=== PATIENT | male | born 1990 | race Caucasian/White ===

== ENCOUNTER 2023-04-21 12:14 | Emergency (ER) | payer MEDICAID ==
[~2023-04-21] VITALS: Ht 177.8 cm; Wt 99.0 kg
[2023-04-21] MEDS ORDERED: LIDOcaine Viscous 15ml cup MM STA (13:24)
[2023-04-21 14:30] VITALS: BP 128/75; PULSE 80; RESP 16; TEMP 98; O2SAT 96
== END 2023-04-21 14:32 | disposition home or self-care (01) ==
LOC: ER 12:14
DX: J68.9 Unspecified respiratory condition due to chemicals, gases, fumes and vapors (principal)
CPT/HCPCS: 71045; 99283

== ENCOUNTER 2023-06-24 12:55 | Emergency (ER) | payer MEDICAID ==
[~2023-06-24] VITALS: Ht 180.3 cm; Wt 96.4 kg
[2023-06-24 13:46] VITALS: BP 149/65; PULSE 81; RESP 16; TEMP 98.4; O2SAT 97
[2023-06-24 14:30] LABS: BASOPHILS % (AUTO) 0.6 % (0-1); EOSINOPHILS # (AUTO) 0.2 X10'3 (0-0.9); EOSINOPHILS % (AUTO) 2.5 % (0-6); HEMATOCRIT 44.8 % (42.0-52.0); HEMOGLOBIN 15.2 g/dl (14.0-17.9); LYMPHOCYTES # (AUTO) 2.3 X10'3 (1.1-4.8); LYMPHOCYTES % (AUTO) 28.4 % (21-51); MEAN CORPUSCULAR HEMOGLOBIN 31.5 PG (27.0-31.0); MEAN CORPUSCULAR HGB CONC 33.8 g/dL (33.0-36.5); MEAN CORPUSCULAR VOLUME 92.9 FL (78-98); MEAN PLATELET VOLUME 8.7 FL (7.4-10.4); MONOCYTES # (AUTO) 0.6 X10'3 (0-0.9); MONOCYTES % (AUTO) 7.1 % (2-12); NEUTROPHILS % (AUTO) 61.4 % (42-75); PLATELET COUNT 247 X10'3 (140-440); RED BLOOD COUNT 4.82 X10'6 (4.70-6.10); RED CELL DISTRIBUTION WIDTH 15.3 % (11.5-14.5); WHITE BLOOD COUNT 8.2 X10'3 (4.5-11.0)
[2023-06-24 14:52] LABS: ALANINE AMINOTRANSFERASE 184 U/L (12-78); ALBUMIN 4.5 G/DL (3.4-5.0); ALBUMIN/GLOBULIN RATIO 1.2 (1.1-1.5); ALKALINE PHOSPHATASE 144 IU/L (46-116); ANION GAP 9 (8-16); ASPARTATE AMINO TRANSFERASE 59 U/L (10-37); BILIRUBIN,TOTAL 0.5 MG/DL (0.1-1.0); BLOOD UREA NITROGEN 17 MG/DL (7-18); BUN/CREATININE RATIO 17.3 (10.0-20.0); CALCIUM 9.8 MG/DL (8.5-10.1); CHLORIDE 106 MMOL/L (99-107); CREATININE 0.98 MG/DL (0.60-1.10); GLUCOSE 100 MG/DL (70-104); SODIUM 142 MMOL/L (135-145); TOTAL PROTEIN 8.4 G/DL (6.4-8.2); eCRCL 114 ML/MIN; eGFR 88 ML/MIN
[2023-06-24 15:01] LABS: PRO BRAIN NATRIURETIC PEPTIDE 39 PG/ML (0-125)
== END 2023-06-24 16:20 | disposition left against medical advice (07) ==
LOC: ER 12:55
DX: F41.9 Anxiety disorder, unspecified (principal); Z53.21 Procedure and treatment not carried out due to patient leaving prior to being seen by health care provider
CPT/HCPCS: 36415; 80053; 82948; 83880; 84484; 85025; 99281

== ENCOUNTER 2023-07-24 19:25 | Emergency (ER) | payer MEDICAID ==
[~2023-07-24] VITALS: Ht 177.8 cm; Wt 99.6 kg
[2023-07-24 19:33] VITALS: BP 130/70; PULSE 74; RESP 18; TEMP 98.6; O2SAT 97
== END 2023-07-24 22:59 | disposition left against medical advice (07) ==
LOC: ER 19:25
DX: F41.9 Anxiety disorder, unspecified (principal); J45.909 Unspecified asthma, uncomplicated
CPT/HCPCS: 71046; 99283

== ENCOUNTER 2023-08-18 11:37 | Inpatient (IN) | payer MEDICAID ==
[~2023-08-18] VITALS: Ht 180.3 cm; Wt 221.4 kg
[2023-08-18 13:08] LABS: BASOPHILS % (AUTO) 0.2 % (0-1); EOSINOPHILS % (AUTO) 0.4 % (0-6); HEMATOCRIT 42.9 % (42.0-52.0); HEMOGLOBIN 14.2 g/dl (14.0-17.9); LYMPHOCYTES # (AUTO) 1.5 X10'3 (1.1-4.8); LYMPHOCYTES % (AUTO) 15.9 % (21-51); MEAN CORPUSCULAR HEMOGLOBIN 31.1 PG (27.0-31.0); MEAN CORPUSCULAR HGB CONC 33.1 g/dL (33.0-36.5); MEAN CORPUSCULAR VOLUME 94.1 FL (78-98); MEAN PLATELET VOLUME 8.5 FL (7.4-10.4); MONOCYTES # (AUTO) 0.1 X10'3 (0-0.9); MONOCYTES % (AUTO) 1.4 % (2-12); NEUTROPHILS # (AUTO) 7.7 X10'3 (1.8-7.7); NEUTROPHILS % (AUTO) 82.1 % (42-75); PLATELET COUNT 234 X10'3 (140-440); RED BLOOD COUNT 4.55 X10'6 (4.70-6.10); RED CELL DISTRIBUTION WIDTH 16.7 % (11.5-14.5); WHITE BLOOD COUNT 9.4 X10'3 (4.5-11.0)
[2023-08-18 13:20] LABS: APTT 25 SECONDS (22-32); PROTHROMBIN TIME 10.6 SECONDS (9.0-12.0)
[2023-08-18 13:21] LABS: ALBUMIN 3.6 G/DL (3.4-5.0); ANION GAP 15 (8-16); BLOOD UREA NITROGEN 14 MG/DL (7-18); BUN/CREATININE RATIO 16.3 (10.0-20.0); CALCIUM 9.1 MG/DL (8.5-10.1); CHLORIDE 109 MMOL/L (99-107); CREATININE 0.86 MG/DL (0.60-1.10); GLUCOSE 127 MG/DL (70-104); POTASSIUM 4.1 MMOL/L (3.5-5.1); SODIUM 147 MMOL/L (135-145); TOTAL CARBON DIOXIDE 22.7 MMOL/L (24-32); eCRCL 130 ML/MIN; eGFR > 90 ML/MIN
[2023-08-18] MEDS: LORazepam 2 mg/ml vial IV ONE (16:46)
[2023-08-18] MEDS: ringers solution, lacted 1,000 ML IV ONE (16:50)
[2023-08-18] MEDS ORDERED: bupivacaine 0.25%/epinephrine 1:200,000 inj (contains preserv. MDV) IJ ONE (16:55)
[2023-08-18] MEDS ORDERED: IMMUNE GLOBUL G/GLY/IGA AVG 46 400 ML IV SCH (17:30)
[2023-08-18] MEDS: IMMUNE GLOBUL G/GLY/IGA AVG 46 400 ML IV SCH (17:30)
[2023-08-18] MEDS: BUPIVAcaine 0.25% w/Epi /PF 30ml vial IJ ONE (17:45)
[2023-08-18] MEDS ORDERED: magnesium hydroxide 30ml (MOM) UD suspension PO PRN (17:55)
[2023-08-18] MEDS ORDERED: HYDROcodone/acetaminophen 5mg/325mg tablet PO PRN (17:55)
[2023-08-18] MEDS ORDERED: mag hydrox/Alum hydrox/simeth 30ml oral suspension PO PRN (17:55)
[2023-08-18] MEDS ORDERED: ondansetron 4mg rapidly disintigrating tab PO PRN (17:55)
[2023-08-18] MEDS ORDERED: acetaminophen 325mg tablet PO PRN ×2 (17:55)
[2023-08-18] MEDS ORDERED: bisacodyl 10mg suppository rectal RC PRN (17:55)
[2023-08-18] MEDS ORDERED: diphenhydrAMINE 50 mg/ml inj IV PRN (17:55)
[2023-08-18] MEDS ORDERED: acetaminophen 650mg rectal suppository RC PRN (17:55)
[2023-08-18] MEDS ORDERED: ondansetron/PF 4mg/2ml inj IV PRN (17:55)
[2023-08-18] MEDS: dextrose 5%-water 1,000 ML IV SCH (18:00)
[2023-08-18 18:11] LABS: HIV ANTIBODY 1&2 RAPID NON-REACTIVE (Neg)
[2023-08-18 19:03] LABS: APTT 24 SECONDS (22-32); PROTHROMBIN TIME 10.6 SECONDS (9.0-12.0)
[2023-08-18 19:10] LABS: HEMOGLOBIN A1C 5.7 % (4.5-6.2)
[2023-08-18 19:15] LABS: CREATINE KINASE 45 U/L (39-308); ETHANOL < 10 MG/DL (<10); LIPASE 64 U/L (16-77); MAGNESIUM 2.5 MG/DL (1.5-2.4); PHOSPHORUS 3.7 MG/DL (2.3-4.5); PRO BRAIN NATRIURETIC PEPTIDE 153 PG/ML (0-125); THYROID STIMULATING HORMONE 0.68 ulU/ml (0.34-4.50)
[2023-08-18 19:54] LABS: GLUCOSE,CSF 65 MG/DL (40-75); TOTAL PROTEIN,CSF 91 MG/DL (15-45)
[2023-08-18] MEDS: docusate sod 100mg capsule PO SCH (20:00)
[2023-08-18 20:29] LABS: APPEARANCE,CSF CLEAR; CSF RBC 0 /CU MM (0); CSF SUPERNATANT COLOR COLORLESS; CSF VOLUME 12 ML; TUBE# COUNTED 1
[2023-08-18 20:31] LABS: CSF WBC CT 2 /CU MM (0-5)
[2023-08-18 20:44] LABS: APPEARANCE,CSF CLEAR; CSF SUPERNATANT COLOR COLORLESS; CSF VOLUME 12 ML; CSF WBC CT 1 /CU MM (0-5); TUBE# COUNTED 4
[2023-08-18 20:47] LABS: CSF RBC 0 /CU MM (0)
[2023-08-18] MEDS ORDERED: temazepam 15mg capsule PO PRN (21:00)
[2023-08-18 22:43] LABS: C-REACTIVE PROTEIN 0.49 MG/DL (0.0-0.5)
[2023-08-19 02:31] LABS: BASOPHILS % (AUTO) 0.3 % (0-1); EOSINOPHILS # (AUTO) 0.2 X10'3 (0-0.9); EOSINOPHILS % (AUTO) 1.6 % (0-6); HEMOGLOBIN 12.7 g/dl (14.0-17.9); LYMPHOCYTES # (AUTO) 1.7 X10'3 (1.1-4.8); LYMPHOCYTES % (AUTO) 18.2 % (21-51); MEAN CORPUSCULAR HEMOGLOBIN 32.3 PG (27.0-31.0); MEAN CORPUSCULAR HGB CONC 34.4 g/dL (33.0-36.5); MEAN CORPUSCULAR VOLUME 93.8 FL (78-98); MEAN PLATELET VOLUME 8.5 FL (7.4-10.4); MONOCYTES # (AUTO) 0.4 X10'3 (0-0.9); MONOCYTES % (AUTO) 3.8 % (2-12); NEUTROPHILS # (AUTO) 7.2 X10'3 (1.8-7.7); NEUTROPHILS % (AUTO) 76.1 % (42-75); PLATELET COUNT 193 X10'3 (140-440); RED BLOOD COUNT 3.94 X10'6 (4.70-6.10); RED CELL DISTRIBUTION WIDTH 16.6 % (11.5-14.5); WHITE BLOOD COUNT 9.4 X10'3 (4.5-11.0)
[2023-08-19 02:44] LABS: ALANINE AMINOTRANSFERASE 56 U/L (12-78); ALBUMIN/GLOBULIN RATIO 0.8 (1.1-1.5); ALKALINE PHOSPHATASE 93 IU/L (46-116); ANION GAP 11 (8-16); ASPARTATE AMINO TRANSFERASE 11 U/L (10-37); BILIRUBIN,TOTAL 0.2 MG/DL (0.1-1.0); BLOOD UREA NITROGEN 20 MG/DL (7-18); BUN/CREATININE RATIO 20.4 (10.0-20.0); CALCIUM 8.4 MG/DL (8.5-10.1); CHLORIDE 111 MMOL/L (99-107); CHOL/HDL RATIO 5.2 (0.00-4.99); CHOLESTEROL 165 MG/DL (0-200); CREATININE 0.98 MG/DL (0.60-1.10); GLUCOSE 109 MG/DL (70-104); HDL CHOLESTEROL 32 MG/DL (35-60); LDL CHOLESTEROL 113 MG/DL (50-100); POTASSIUM 3.3 MMOL/L (3.5-5.1); SODIUM 146 MMOL/L (135-145); TOTAL CARBON DIOXIDE 23.9 MMOL/L (24-32); TOTAL PROTEIN 6.9 G/DL (6.4-8.2); TRIGLYCERIDES 172 MG/DL (20-135); eCRCL 114 ML/MIN; eGFR 88 ML/MIN
[2023-08-19] MEDS: pantoprazole 40mg Tablet.DR PO SCH (07:36)
[2023-08-19] MEDS: HYDROcodone/acetaminophen 10/325mg tab PO PRN (08:57)
[2023-08-19] MEDS: diphenhydrAMINE 25mg capsule PO PRN (09:19)
[2023-08-19 11:16] VITALS: BP 118/75; PULSE 65; RESP 18; TEMP 98.1; O2SAT 98
[2023-08-19 15:00] VITALS: BP 115/73; PULSE 54; RESP 18; TEMP 97.2; O2SAT 95
[2023-08-19 18:00] VITALS: BP 127/87; PULSE 68; RESP 18; TEMP 97.5; O2SAT 96
[2023-08-19] MEDS ORDERED: potassium Cl 40MEQ/1/2NS 520ml 520 ML IV PRN (18:30)
[2023-08-19] MEDS ORDERED: potassium Cl 20 mEq SR tablet PO PRN (18:30)
[2023-08-19] MEDS ORDERED: magnesium Cl slow-release 64mg tablet PO PRN (18:30)
[2023-08-19] MEDS ORDERED: magnesium 4gm in 100ml NS 100 ML IV PRN (18:30)
[2023-08-19] MEDS ORDERED: magnesium 2GM in 50ml NS 50 ML IV PRN (18:30)
[2023-08-19] MEDS: potassium Cl 20 mEq SR tablet PO PRN (19:09)
[2023-08-19 20:00] VITALS: RESP 16; O2SAT 95
[2023-08-19] MEDS: K and/or MAG REPLACEMENT MC SCH (20:00)
[2023-08-19 22:00] VITALS: BP 118/72; PULSE 56; RESP 16; TEMP 97.3; O2SAT 94
[2023-08-20] VITALS (7 sets, daily range): BP systolic 109–134; BP diastolic 59–81; PULSE 42–62; RESP 14–20; TEMP 97.1–98.1; O2SAT 94–98
[2023-08-20] MEDS: IMMUNE GLOBUL G/GLY/IGA AVG 46 400 ML IV SCH (01:00)
[2023-08-20] MEDS: morphine 2 MG/ML inj. syringe IV PRN (05:21)
[2023-08-20 07:05] LABS: BASOPHILS # (AUTO) 0.1 X10'3 (0-0.2); BASOPHILS % (AUTO) 0.9 % (0-1); EOSINOPHILS # (AUTO) 0.3 X10'3 (0-0.9); EOSINOPHILS % (AUTO) 4.1 % (0-6); HEMATOCRIT 38.1 % (42.0-52.0); HEMOGLOBIN 12.9 g/dl (14.0-17.9); LYMPHOCYTES # (AUTO) 2.4 X10'3 (1.1-4.8); LYMPHOCYTES % (AUTO) 39.3 % (21-51); MEAN CORPUSCULAR HEMOGLOBIN 31.8 PG (27.0-31.0); MEAN CORPUSCULAR HGB CONC 33.8 g/dL (33.0-36.5); MEAN CORPUSCULAR VOLUME 94.1 FL (78-98); MEAN PLATELET VOLUME 8.5 FL (7.4-10.4); MONOCYTES # (AUTO) 0.5 X10'3 (0-0.9); MONOCYTES % (AUTO) 7.8 % (2-12); NEUTROPHILS # (AUTO) 2.9 X10'3 (1.8-7.7); NEUTROPHILS % (AUTO) 47.9 % (42-75); PLATELET COUNT 188 X10'3 (140-440); RED BLOOD COUNT 4.04 X10'6 (4.70-6.10); RED CELL DISTRIBUTION WIDTH 16.9 % (11.5-14.5); WHITE BLOOD COUNT 6.1 X10'3 (4.5-11.0)
[2023-08-20 07:52] LABS: ALANINE AMINOTRANSFERASE 51 U/L (12-78); ALBUMIN 2.8 G/DL (3.4-5.0); ALBUMIN/GLOBULIN RATIO 0.6 (1.1-1.5); ALKALINE PHOSPHATASE 91 IU/L (46-116); ANION GAP 10 (8-16); ASPARTATE AMINO TRANSFERASE 12 U/L (10-37); BILIRUBIN,TOTAL 0.1 MG/DL (0.1-1.0); BLOOD UREA NITROGEN 15 MG/DL (7-18); BUN/CREATININE RATIO 17.6 (10.0-20.0); CALCIUM 8.3 MG/DL (8.5-10.1); CHLORIDE 111 MMOL/L (99-107); CREATININE 0.85 MG/DL (0.60-1.10); GLUCOSE 114 MG/DL (70-104); MAGNESIUM 2.3 MG/DL (1.5-2.4); POTASSIUM 3.8 MMOL/L (3.5-5.1); SODIUM 144 MMOL/L (135-145); TOTAL CARBON DIOXIDE 23.1 MMOL/L (24-32); TOTAL PROTEIN 7.3 G/DL (6.4-8.2); eCRCL 132 ML/MIN; eGFR > 90 ML/MIN
[2023-08-20] MEDS ORDERED: LORazepam 0.5 MG tablet PO PRN (12:25)
[2023-08-20] MEDS: LORazepam 1 MG tablet PO PRN (13:15)
[2023-08-20] MEDS: LORazepam 2 mg/ml vial IV PRN (13:40)
[2023-08-20] MEDS ORDERED: LORazepam 2 mg/ml vial IV ONE (14:10)
[2023-08-20] MEDS: LORazepam 2 mg/ml vial IV ONE (14:30)
[2023-08-20] MEDS ORDERED: GADOTERATE MEGLUMINE 7.5 MMOL/15 ML VIAL IV ONE (15:35)
[2023-08-20] MEDS: LORazepam 1 MG tablet PO SCH (19:19)
[2023-08-20] MEDS: heparin, porcine 5000 units/ml vial SQ SCH (20:44)
[2023-08-20] MEDS: vancomycin 1,750 MG in NS 350ml IV soln IV ONE (20:44)
[2023-08-21] MEDS: vancomycin/NS 1 GM ADD-VANTAGE 250 ML IV SCH (03:25)
[2023-08-21 06:28] LABS: BASOPHILS % (AUTO) 0.5 % (0-1); EOSINOPHILS # (AUTO) 0.3 X10'3 (0-0.9); EOSINOPHILS % (AUTO) 3.8 % (0-6); HEMATOCRIT 40.8 % (42.0-52.0); HEMOGLOBIN 13.7 g/dl (14.0-17.9); LYMPHOCYTES # (AUTO) 2.1 X10'3 (1.1-4.8); LYMPHOCYTES % (AUTO) 27.3 % (21-51); MEAN CORPUSCULAR HGB CONC 33.6 g/dL (33.0-36.5); MEAN CORPUSCULAR VOLUME 95.3 FL (78-98); MEAN PLATELET VOLUME 8.8 FL (7.4-10.4); MONOCYTES # (AUTO) 0.6 X10'3 (0-0.9); MONOCYTES % (AUTO) 7.4 % (2-12); NEUTROPHILS # (AUTO) 4.6 X10'3 (1.8-7.7); PLATELET COUNT 197 X10'3 (140-440); RED BLOOD COUNT 4.28 X10'6 (4.70-6.10); RED CELL DISTRIBUTION WIDTH 17.1 % (11.5-14.5); WHITE BLOOD COUNT 7.5 X10'3 (4.5-11.0)
[2023-08-21 07:00] VITALS: BP 131/79; PULSE 60; RESP 16; TEMP 98; O2SAT 96
[2023-08-21 07:04] LABS: ALANINE AMINOTRANSFERASE 55 U/L (12-78); ALBUMIN/GLOBULIN RATIO 0.6 (1.1-1.5); ALKALINE PHOSPHATASE 95 IU/L (46-116); ANION GAP 14 (8-16); ASPARTATE AMINO TRANSFERASE 17 U/L (10-37); BILIRUBIN,TOTAL 0.4 MG/DL (0.1-1.0); BLOOD UREA NITROGEN 14 MG/DL (7-18); BUN/CREATININE RATIO 15.6 (10.0-20.0); CALCIUM 8.9 MG/DL (8.5-10.1); CHLORIDE 109 MMOL/L (99-107); GLUCOSE 110 MG/DL (70-104); MAGNESIUM 2.5 MG/DL (1.5-2.4); POTASSIUM 4.2 MMOL/L (3.5-5.1); SODIUM 143 MMOL/L (135-145); TOTAL CARBON DIOXIDE 20.4 MMOL/L (24-32); TOTAL PROTEIN 8.2 G/DL (6.4-8.2); eCRCL 124 ML/MIN; eGFR > 90 ML/MIN
[2023-08-21 09:18] LABS: TOTAL CELLS COUNTED 100
[2023-08-21 09:19] LABS: ANISOCYTOSIS 1+; PLATELET ESTIMATE NORMAL
[2023-08-21 11:00] VITALS: BP 134/78; PULSE 76; RESP 18; TEMP 98; O2SAT 95
[2023-08-21] MEDS: LORazepam 1 MG tablet PO SCH (13:00)
[2023-08-21 15:00] VITALS: BP 143/78; PULSE 70; RESP 18; TEMP 97.8; O2SAT 97
[2023-08-21] MEDS: LORazepam 2 mg/ml vial IV ONE (16:28)
[2023-08-21] MEDS ORDERED: divalproex sod 125mg tablet.DR PO SCH (17:30)
[2023-08-21 18:00] VITALS: BP 126/83; PULSE 64; RESP 16; TEMP 97.3; O2SAT 98
[2023-08-21] MEDS ORDERED: GADOTERATE MEGLUMINE 7.5 MMOL/15 ML VIAL IV ONE (18:49)
[2023-08-21] MEDS ORDERED: VANCOMYCIN LEVEL IJ ONE (19:30)
[2023-08-21 20:00] VITALS: RESP 18; O2SAT 98
[2023-08-21 22:00] VITALS: BP 133/76; PULSE 71; RESP 18; TEMP 97.7; O2SAT 95
[2023-08-22] VITALS (7 sets, daily range): BP systolic 107–142; BP diastolic 68–81; PULSE 64–79; RESP 16–24; TEMP 97.2–98.8; O2SAT 95–100
[2023-08-22 07:22] LABS: BASOPHILS # (AUTO) 0.1 X10'3 (0-0.2); BASOPHILS % (AUTO) 0.5 % (0-1); EOSINOPHILS # (AUTO) 0.3 X10'3 (0-0.9); EOSINOPHILS % (AUTO) 2.9 % (0-6); HEMATOCRIT 39.1 % (42.0-52.0); HEMOGLOBIN 13.6 g/dl (14.0-17.9); LYMPHOCYTES # (AUTO) 2.3 X10'3 (1.1-4.8); LYMPHOCYTES % (AUTO) 22.4 % (21-51); MEAN CORPUSCULAR HEMOGLOBIN 32.2 PG (27.0-31.0); MEAN CORPUSCULAR HGB CONC 34.8 g/dL (33.0-36.5); MEAN CORPUSCULAR VOLUME 92.5 FL (78-98); MEAN PLATELET VOLUME 8.5 FL (7.4-10.4); MONOCYTES # (AUTO) 0.6 X10'3 (0-0.9); MONOCYTES % (AUTO) 5.6 % (2-12); NEUTROPHILS % (AUTO) 68.6 % (42-75); PLATELET COUNT 188 X10'3 (140-440); RED BLOOD COUNT 4.22 X10'6 (4.70-6.10); RED CELL DISTRIBUTION WIDTH 16.8 % (11.5-14.5); WHITE BLOOD COUNT 10.2 X10'3 (4.5-11.0)
[2023-08-22 07:41] LABS: ALANINE AMINOTRANSFERASE 54 U/L (12-78); ALBUMIN 2.9 G/DL (3.4-5.0); ALBUMIN/GLOBULIN RATIO 0.5 (1.1-1.5); ALKALINE PHOSPHATASE 105 IU/L (46-116); ANION GAP 6 (8-16); ASPARTATE AMINO TRANSFERASE 25 U/L (10-37); BILIRUBIN,TOTAL 0.7 MG/DL (0.1-1.0); BLOOD UREA NITROGEN 15 MG/DL (7-18); BUN/CREATININE RATIO 16.3 (10.0-20.0); CALCIUM 8.4 MG/DL (8.5-10.1); CHLORIDE 107 MMOL/L (99-107); CREATININE 0.92 MG/DL (0.60-1.10); GLUCOSE 101 MG/DL (70-104); POTASSIUM 3.8 MMOL/L (3.5-5.1); SODIUM 139 MMOL/L (135-145); TOTAL CARBON DIOXIDE 25.8 MMOL/L (24-32); TOTAL PROTEIN 8.2 G/DL (6.4-8.2); eCRCL 122 ML/MIN; eGFR > 90 ML/MIN
[2023-08-22] MEDS: divalproex sod 125mg tablet.DR PO SCH (08:01)
[2023-08-22 10:15] LABS: ALDOLASE 6.9 U/L (3.3-10.3)
[2023-08-22] MEDS: amitriptyline 25mg tablet PO SCH (21:19)
[2023-08-23 02:00] VITALS: BP 133/79; PULSE 63; RESP 18; TEMP 97.2; O2SAT 100
[2023-08-23 06:00] VITALS: BP 113/79; PULSE 63; RESP 16; TEMP 97.8; O2SAT 95
[2023-08-23 06:44] LABS: BASOPHILS # (AUTO) 0.1 X10'3 (0-0.2); BASOPHILS % (AUTO) 0.4 % (0-1); EOSINOPHILS # (AUTO) 0.4 X10'3 (0-0.9); EOSINOPHILS % (AUTO) 2.8 % (0-6); HEMATOCRIT 39.8 % (42.0-52.0); HEMOGLOBIN 13.6 g/dl (14.0-17.9); LYMPHOCYTES # (AUTO) 2.3 X10'3 (1.1-4.8); LYMPHOCYTES % (AUTO) 16.2 % (21-51); MEAN CORPUSCULAR HEMOGLOBIN 31.7 PG (27.0-31.0); MEAN CORPUSCULAR HGB CONC 34.1 g/dL (33.0-36.5); MEAN PLATELET VOLUME 8.9 FL (7.4-10.4); MONOCYTES # (AUTO) 0.7 X10'3 (0-0.9); MONOCYTES % (AUTO) 5.2 % (2-12); NEUTROPHILS # (AUTO) 10.5 X10'3 (1.8-7.7); NEUTROPHILS % (AUTO) 75.4 % (42-75); PLATELET COUNT 207 X10'3 (140-440); RED BLOOD COUNT 4.28 X10'6 (4.70-6.10)
[2023-08-23 06:56] LABS: ALANINE AMINOTRANSFERASE 55 U/L (12-78); ALBUMIN/GLOBULIN RATIO 0.5 (1.1-1.5); ALKALINE PHOSPHATASE 101 IU/L (46-116); ANION GAP 7 (8-16); ASPARTATE AMINO TRANSFERASE 27 U/L (10-37); BILIRUBIN,TOTAL 0.7 MG/DL (0.1-1.0); BLOOD UREA NITROGEN 14 MG/DL (7-18); BUN/CREATININE RATIO 16.5 (10.0-20.0); CALCIUM 8.8 MG/DL (8.5-10.1); CHLORIDE 107 MMOL/L (99-107); CREATININE 0.85 MG/DL (0.60-1.10); GLUCOSE 104 MG/DL (70-104); MAGNESIUM 2.1 MG/DL (1.5-2.4); POTASSIUM 4.1 MMOL/L (3.5-5.1); SODIUM 140 MMOL/L (135-145); TOTAL CARBON DIOXIDE 25.7 MMOL/L (24-32); TOTAL PROTEIN 8.6 G/DL (6.4-8.2); eCRCL 132 ML/MIN; eGFR > 90 ML/MIN
[2023-08-23 08:00] VITALS: RESP 16; O2SAT 95
[2023-08-23 12:02] LABS: CSF WEST NILE VIRUS, IGM Negative (Negative)
[2023-08-23] MEDS: sertraline 25mg tablet PO SCH (12:37)
[2023-08-23 17:28] LABS: IMMUNOGLOBULIN G, QN CSF 4.3 mg/dL (0.0-10.3); VDRL, CSF Non Reactive (Non Rea:<1:1)
[2023-08-23 18:00] VITALS: BP 119/74; PULSE 60; RESP 20; TEMP 97.6; O2SAT 96
[2023-08-23 20:00] VITALS: RESP 20; O2SAT 91
[2023-08-23] MEDS: normal saline 1000ml 1,000 ML IV SCH (21:30)
[2023-08-23 22:00] VITALS: BP 123/74; PULSE 60; RESP 20; TEMP 97.8; O2SAT 96
[2023-08-24 02:00] VITALS: BP 117/57; PULSE 63; RESP 20; TEMP 97.6; O2SAT 95
[2023-08-24 06:00] VITALS: BP 123/70; PULSE 60; RESP 20; TEMP 97.6; O2SAT 96
[2023-08-24 08:00] VITALS: RESP 18; O2SAT 98
[2023-08-24 11:00] VITALS: BP 123/83; PULSE 66; RESP 16; TEMP 98.7; O2SAT 95
[2023-08-24 11:03] LABS: BASOPHILS % (AUTO) 0.2 % (0-1); EOSINOPHILS # (AUTO) 0.5 X10'3 (0-0.9); EOSINOPHILS % (AUTO) 4.9 % (0-6); HEMATOCRIT 42.5 % (42.0-52.0); HEMOGLOBIN 14.8 g/dl (14.0-17.9); LYMPHOCYTES # (AUTO) 2.1 X10'3 (1.1-4.8); LYMPHOCYTES % (AUTO) 21.1 % (21-51); MEAN CORPUSCULAR HEMOGLOBIN 32.5 PG (27.0-31.0); MEAN CORPUSCULAR HGB CONC 34.9 g/dL (33.0-36.5); MEAN CORPUSCULAR VOLUME 93.2 FL (78-98); MEAN PLATELET VOLUME 9.2 FL (7.4-10.4); MONOCYTES # (AUTO) 0.6 X10'3 (0-0.9); MONOCYTES % (AUTO) 5.6 % (2-12); NEUTROPHILS # (AUTO) 6.9 X10'3 (1.8-7.7); NEUTROPHILS % (AUTO) 68.2 % (42-75); PLATELET COUNT 221 X10'3 (140-440); RED BLOOD COUNT 4.56 X10'6 (4.70-6.10); RED CELL DISTRIBUTION WIDTH 17.2 % (11.5-14.5); WHITE BLOOD COUNT 10.1 X10'3 (4.5-11.0)
[2023-08-24 11:10] LABS: ALANINE AMINOTRANSFERASE 86 U/L (12-78); ALBUMIN/GLOBULIN RATIO 0.5 (1.1-1.5); ALKALINE PHOSPHATASE 99 IU/L (46-116); ANION GAP 11 (8-16); ASPARTATE AMINO TRANSFERASE 51 U/L (10-37); BLOOD UREA NITROGEN 13 MG/DL (7-18); BUN/CREATININE RATIO 15.1 (10.0-20.0); CALCIUM 9.4 MG/DL (8.5-10.1); CHLORIDE 105 MMOL/L (99-107); CREATININE 0.86 MG/DL (0.60-1.10); GLUCOSE 112 MG/DL (70-104); POTASSIUM 4.2 MMOL/L (3.5-5.1); SODIUM 139 MMOL/L (135-145); TOTAL CARBON DIOXIDE 22.8 MMOL/L (24-32); eCRCL 130 ML/MIN; eGFR > 90 ML/MIN
[2023-08-24] MEDS ORDERED: AMIT25TA9 PO (12:04)
[2023-08-24] MEDS ORDERED: SERT-432 PO (12:04)
[2023-08-24 16:54] LABS: IMMUNOGLOBULIN A, QUANT, CSF 0.99 mg/dL (0.00-0.71); IMMUNOGLOBULIN M, QN, CSF 0.06 mg/dL (0.01-0.08)
[2023-08-25 19:40] LABS: MYELIN BASIC PROTEIN, CSF >139.0 ng/mL (0.0-3.8)
== END 2023-08-24 16:35 | disposition home or self-care (01) | DRG 49 ==
LOC: ER 11:38 → ED HOLD 17:56 → EDBEDREQ 08-19 06:25 → PCU 3S 08-19 11:18
PROVIDERS: ADMIT Family Medicine; ATTEND Family Medicine
PROC: 00JU3ZZ Inspection of Spinal Canal, Percutaneous Approach (ICD-10-PCS; principal; 2023-08-18)
DX: G61.0 Guillain-Barre syndrome (principal); E87.0 Hyperosmolality and hypernatremia; E87.20 Acidosis, unspecified; E66.9 Obesity, unspecified; G89.29 Other chronic pain; F41.1 Generalized anxiety disorder; M54.50 Low back pain, unspecified; J45.909 Unspecified asthma, uncomplicated; Z20.822 Contact with and (suspected) exposure to COVID-19; F32.A Depression, unspecified; F10.20 Alcohol dependence, uncomplicated; Z68.30 Body mass index [BMI] 30.0-30.9, adult; Z79.899 Other long term (current) drug therapy
CPT/HCPCS: 36415; 62270; 70450; 70553; 71045; 72156; 72157; 72158; 80048; 80053; 80061; 80320; 82085; 82550; 82607; 82784; 82945; 82948; 83036; 83605; 83690; 83735; 83873; 83880; 84100; 84145; 84157; 84443; 85007; 85025; 85610; 85651; 85730; 86140; 86592; 86703; 86788; 86789; 87015; 87040; 87070; 87077; 87081; 87502; 87503; 87634; 87811; 89051; 93005; 93308; 97116; 97161; 97530; 99285; A6446; A9575; G0378; J1459; J1644; J2060; J2270; J3370; J7030; J7040; J7042; J7070; J7120; Q0163; S0020

== ENCOUNTER 2024-07-21 02:53 | Emergency (ER) | payer MEDICAID ==
[~2024-07-21] VITALS: Ht 180.3 cm; Wt 104.0 kg
[~2024-07-21 02:53] MED LIST: AMIT25TA9 PO; SERT-432 PO
[2024-07-21] MEDS: normal saline 1000ML IV soln IVB ONE (03:38)
[2024-07-21] MEDS: dexamethasone sod phosphate 10mg/ml inj IV STA (03:38)
[2024-07-21] MEDS: diphenhydrAMINE 50 mg/ml inj IV ONE (03:38)
[2024-07-21 03:42] LABS: BASOPHILS # (AUTO) 0.1 X10'3 (0-0.2); BASOPHILS % (AUTO) 1.2 % (0-1); EOSINOPHILS # (AUTO) 0.2 X10'3 (0-0.9); EOSINOPHILS % (AUTO) 2.4 % (0-6); HEMATOCRIT 41.9 % (42.0-52.0); HEMOGLOBIN 14.1 g/dl (14.0-17.9); LYMPHOCYTES # (AUTO) 3.4 X10'3 (1.1-4.8); LYMPHOCYTES % (AUTO) 41.1 % (21-51); MEAN CORPUSCULAR HEMOGLOBIN 29.9 PG (27.0-31.0); MEAN CORPUSCULAR HGB CONC 33.6 g/dL (33.0-36.5); MEAN CORPUSCULAR VOLUME 88.9 FL (78-98); MEAN PLATELET VOLUME 9.1 FL (7.4-10.4); MONOCYTES # (AUTO) 0.5 X10'3 (0-0.9); MONOCYTES % (AUTO) 5.5 % (2-12); NEUTROPHILS # (AUTO) 4.1 X10'3 (1.8-7.7); NEUTROPHILS % (AUTO) 49.8 % (42-75); PLATELET COUNT 223 X10'3 (140-440); RED BLOOD COUNT 4.71 X10'6 (4.70-6.10); RED CELL DISTRIBUTION WIDTH 13.6 % (11.5-14.5); WHITE BLOOD COUNT 8.3 X10'3 (4.5-11.0)
[2024-07-21 03:54] LABS: ALANINE AMINOTRANSFERASE 113 U/L (12-78); ALBUMIN 3.8 G/DL (3.4-5.0); ALBUMIN/GLOBULIN RATIO 1.3 (1.1-1.5); ALKALINE PHOSPHATASE 163 IU/L (46-116); ANION GAP 12 (8-16); ASPARTATE AMINO TRANSFERASE 32 U/L (10-37); BILIRUBIN,TOTAL 0.3 MG/DL (0.1-1.0); BLOOD UREA NITROGEN 15 MG/DL (7-18); BUN/CREATININE RATIO 20.8 (10.0-20.0); C-REACTIVE PROTEIN 1.36 MG/DL (0.0-0.5); CALCIUM 8.6 MG/DL (8.5-10.1); CHLORIDE 105 MMOL/L (99-107); CREATINE KINASE 173 U/L (39-308); CREATININE 0.72 MG/DL (0.60-1.10); GLUCOSE 106 MG/DL (70-104); MAGNESIUM 2.2 MG/DL (1.5-2.4); POTASSIUM 4.1 MMOL/L (3.5-5.1); SODIUM 141 MMOL/L (135-145); TOTAL CARBON DIOXIDE 24.3 MMOL/L (24-32); TOTAL PROTEIN 6.8 G/DL (6.4-8.2); eCRCL 154 ML/MIN; eGFR > 90 ML/MIN
[2024-07-21 04:33] LABS: LACTATE DEHYDROGENASE 171 U/L (85-227)
[2024-07-21 06:00] LABS: BILIRUBIN,URINE NEGATIVE (Neg); CLARITY,URINE CLEAR (Clear); COLOR,URINE YELLOW (Yellow); GLUCOSE, URINE NEGATIVE (Neg); KETONES,URINE NEGATIVE (Neg); LEUKOCYTE ESTERASE ,URINE NEGATIVE (Neg); NITRITES, URINE NEGATIVE (Neg); OCCULT BLOOD,URINE NEGATIVE (Neg); PROTEIN,URINE NEGATIVE (Neg); UROBILINOGEN,URINE 0.2 E.U/dL (0.2-1.0)
[2024-07-21 06:13] LABS: UA COLLECTION TYPE VOIDED
[2024-07-21 07:26] VITALS: TEMP 98
[2024-07-21] MEDS: diphenhydrAMINE 25mg capsule PO ONE (09:20)
[2024-07-21 10:30] VITALS: BP 123/84; PULSE 89; RESP 14; O2SAT 96
== END 2024-07-21 10:33 | disposition home or self-care (01) ==
LOC: ER 02:54
DX: G61.0 Guillain-Barre syndrome (principal); L27.0 Generalized skin eruption due to drugs and medicaments taken internally; J45.909 Unspecified asthma, uncomplicated; Z79.899 Other long term (current) drug therapy
CPT/HCPCS: 36415; 80053; 81003; 82550; 82607; 83615; 83735; 84145; 85025; 85651; 86140; 96361; 96374; 96375; 99285; J1100; J1200; J7030; Q0163